=== PATIENT | female | born 1985 ===

== ENCOUNTER 2021-05-15 10:20 | Emergency (ER) | payer MEDICAID ==
[~2021-05-15] VITALS: Ht 162.6 cm; Wt 77.3 kg
[2021-05-15 10:27] VITALS: BP 120/77; Ht 162.6 cm; Wt 77.3 kg
[2021-05-15] MEDS ORDERED: LEXAPRO10 MG (10:54)
[2021-05-15] MEDS ORDERED: GABAPENTIN100 MG PO (10:54)
[2021-05-15] MEDS ORDERED: GABAPENTIN300 MG PO (10:54)
[2021-05-15] MEDS ORDERED: ZYPREXA10 MG PO (10:55)
[2021-05-15] MEDS ORDERED: PALIPERIDONE ER9 MG PO (10:56)
[2021-05-15] MEDS ORDERED: SEROQUEL100 MG PO (10:56)
[2021-05-15] MEDS ORDERED: MINIPRESS2 MG PO (10:56)
[2021-05-15] MEDS ORDERED: CEPHALEXIN500 M1 PO (10:57)
[2021-05-15 10:58] LABS: BASOPHILS 1.3 % (0-2); EOSINOPHILS 5.5 % (0-7); HEMATOCRIT 32.3 % (36.0-48.0); HEMOGLOBIN 10.4 g/dL (12-16); MCH 24.3 pg (26.0-34.0); MCHC 32.3 g/dL (31.0-37.0); MCV 75.2 fL (80.0-100.0); MEAN PLATELET VOLUME 7.3 fL (7.4-10.4); MONOCYTES 9.2 % (2-11); PLATELET COUNT 280 10x3/uL (130-400); RDW 17.7 % (11.5-14.5); WBC 9.3 10x3/uL (4.8-10.8)
[2021-05-15] MEDS ORDERED: LITHIUM CARBON300 MG PO (10:58)
[2021-05-15] MEDS ORDERED: SYNTHROID75 MCG PO (10:58)
[2021-05-15 11:05] LABS: CALC OSMOLALITY 275 mosm/kg (275-300); CALCIUM 8.3 mg/dL (8.5-10.1); CARBON DIOXIDE 27.4 mmol/L (21.0-32.0); CHLORIDE - SERUM 104 mmol/L (98-107); CREATININE - SERUM 0.5 mg/dL (0.6-1.3); GLUCOSE 112 mg/dL (74-106); POTASSIUM - SERUM 3.9 mmol/L (3.5-5.1); SODIUM 138 mmol/L (136-145); UREA NITROGEN 10 mg/dL (7-18); eGFR NON AFRICAN AMERICAN > 90 mL/min (90-120)
[2021-05-15 11:14] LABS: ALBUMIN 3.6 g/dL (3.4-5.0); ALKALINE PHOSPHATASE 54 U/L (30-120); ALT (SGPT) 38 U/L (10-68); AMYLASE - SERUM 114 U/L (25-115); BILIRUBIN - TOTAL 1.48 mg/dL (0.2-1.3); LIPASE 667 U/L (73-393); PROTEIN - SERUM 7.3 g/dL (6.4-8.2); TROPONIN-I < 0.017 ng/mL (0.000-0.060)
[2021-05-15 11:18] LABS: BILIRUBIN NEGATIVE (NEGATIVE); KETONE NEGATIVE mg/dL (< 1+); NITRITE NEGATIVE (NEGATIVE); PH 7.5 (5.0-8.0); UROBILINOGEN NORMAL mg/dL (< 2)
[2021-05-15 11:35] LABS: HCG URINE NEGATIVE (NEGATIVE)
== END 2021-05-16 06:15 ==
LOC: D.ER 10:20
PROVIDERS: Emergency Medicine
DX: R10.9 Unspecified abdominal pain (principal); K63.89 Other specified diseases of intestine